=== PATIENT | male | born 2000 | race Two or more races ===

== ENCOUNTER 2021-02-15 09:30 | Emergency (ER) | payer BC, OTHER ==
[~2021-02-15] VITALS: Ht 175.3 cm; Wt 68.0 kg
[2021-02-15 10:05] VITALS: BP 143/77
[2021-02-15] MEDS ORDERED: TETANUS-DIPTH-ACEL PERTUSSIS 0.5ML SYR Tdap IM ONE (11:00)
[2021-02-15] MEDS ORDERED: BACITRACIN TOP OINT 1 UD PKG TOP ONE (11:00)
== END 2021-02-15 11:08 | disposition home or self-care (01) ==
LOC: ER 09:30 → EDBD 09:30 → ER 10:54
DX: S71.112A Laceration without foreign body, left thigh, initial encounter (principal); Y04.8XXA Assault by other bodily force, initial encounter; Y93.89 Activity, other specified; Y92.89 Other specified places as the place of occurrence of the external cause; Y99.8 Other external cause status
CPT/HCPCS: 12004